=== PATIENT | female | born 1990 | race Caucasian/White ===

== ENCOUNTER 2016-11-26 13:42 | Emergency (ER) | payer OTHER ==
[~2016-11-26] VITALS: Ht 154.9 cm; Wt 50.0 kg
[2016-11-26 13:46] VITALS: BP 136/63; PULSE 63; RESP 15; TEMP 97.8; O2SAT 99
--- NOTE | 2016-11-26 14:27 | PD ---
HPI Chief Complaint: GI Complaint Time Seen by Provider: 13:58 Travel History International Travel<30 days: No Contact w/Intl Traveler<30days: No Traveled to known affect area: No History of Present Illness HPI This is a 26-year-old female who presents to the emergency department with some left upper quadrant abdominal discomfort, intermittent, mild, with no associated vaginal bleeding. She does say she's had a little bit of blood in her stool. She also says that every day she vomits and she's lost 15 pounds during this and she noticed a little bit of blood in her vomit earlier today which concerned her. She was told that she is about 8 weeks but she hasn't had an ultrasound yet. 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 COUNT INCLUDES THE [facility] Past Medical History Medical History: Denies Significant Hx ?: LMP: UNKNOWN Past Surgical History Surgical History: No Previous Surgery Social History Alcohol Use: No Tobacco Use: Yes Substance Use: No (smokes marijuana) Allergies-Medications (Allergen,Severity, Reaction): Coded Allergies: No Known Allergies (Unverified , 11/26/16) Reported Meds & Prescriptions Reported Meds & Active Scripts Active No Active Prescriptions or Reported Medications Review of Systems Except as stated in HPI: all other systems reviewed are Neg Physical Exam Narrative GENERAL:Well appearing, no acute distress SKIN: Focused skin assessment warm and dry. HEAD: Atraumatic. Normocephalic. EYES: Pupils equal and round. No injection or drainage. ENT: Dry mucous membranes. Smells ketotic. NECK: Trachea midline. CARDIOVASCULAR: Regular rate and rhythm. No murmur appreciated. RESPIRATORY: Clear to auscultation. Breath sounds equal bilaterally. GASTROINTESTINAL: Abdomen soft, non-tender, nondistended. MUSCULOSKELETAL: No obvious deformities. NEUROLOGICAL: Awake and alert. No obvious cranial nerve deficits. Moving all extremities. PSYCHIATRIC: Appropriate mood and affect; insight and judgment normal. Data Data Last Documented VS Vital Signs Date Time Temp Pulse Resp B/P Pulse Ox O2 Delivery O2 Flow Rate FiO2 11/26/16 13:46 97.8 63 15 136/63 99 Orders Ed Poc Ultrasound (11/26/16 ) Complete Blood Count With Diff (11/26/16 14:12) Basic Metabolic Panel (Bmp) (11/26/16 14:12) Sodium Chlor 0.9% 1000 Ml Inj (Ns 1000 M (11/26/16 14:30) Labs Laboratory Tests Test 11/26/16 14:15 White Blood Count 6.2 TH/MM3 Red Blood Count 3.58 MIL/MM3 Hemoglobin 10.6 GM/DL Hematocrit 30.6 % Mean Corpuscular Volume 85.7 FL Mean Corpuscular Hemoglobin 29.6 PG Mean Corpuscular Hemoglobin 34.5 % Concent Red Cell Distribution Width 12.5 % Platelet Count 182 TH/MM3 Mean Platelet Volume 6.9 FL Neutrophils (%) (Auto) 57.5 % Lymphocytes (%) (Auto) 33.8 % Monocytes (%) (Auto) 6.9 % Eosinophils (%) (Auto) 1.3 % Basophils (%) (Auto) 0.5 % Neutrophils # (Auto) 3.6 TH/MM3 Lymphocytes # (Auto) 2.1 TH/MM3 Monocytes # (Auto) 0.4 TH/MM3 Eosinophils # (Auto) 0.1 TH/MM3 Basophils # (Auto) 0.0 TH/MM3 CBC Comment DIFF FINAL Differential Comment Sodium Level 137 MEQ/L Potassium Level 3.7 MEQ/L Chloride Level 104 MEQ/L Carbon Dioxide Level 23.2 MEQ/L Anion Gap 10 MEQ/L Blood Urea Nitrogen 5 MG/DL Creatinine 0.37 MG/DL Estimat Glomerular Filtration 215 ML/MIN Rate Random Glucose 85 MG/DL Calcium Level 8.8 MG/DL MDM Medical Decision Making Medical Screen Exam Complete: Yes Emergency Medical Condition: Yes Interpretation(s) Afebrile, no tachycardia, normotensive No leukocytosis Electrolytes are reassuring Differential Diagnosis , ectopic , hyperemesis gravidarum, electrolyte abnormality Narrative Course This is a 26-year-old female who presents to the emergency department with nausea and vomiting in the setting of early . She appears dehydrated on exam. an IV was established. She was given a liter of IV hydration. Labs are obtained which are reassuring. Bedside ultrasound demonstrates an active fetus. I think patient can safely be discharged with B-6 and Unisom and can follow-up with an ed educational aide. Procedures Procedure Narrative [id number] ultrasound: Intrauterine , mobile and active, unable to determine heart rate due to activity consistent with a viable Diagnosis Primary Impression: Hyperemesis gravidarum Patient Instructions: General Instructions Additional Instructions: Follow up with [facility] at: Follow up with: [facility] [address] [facility]. [address] [place] [address] Office Hours Saturday - 9:00 am - 5:30 pm Saturday 8:00 am - 12:00 pm Teen Tuesdays 4:00 - 6:30 pm Med/Other Pt SpecificInfo: Prescription(s) given Scripts Pyridoxine HCl (Vitamin B6) (Vitamin B-6)25 Mg Tablet1 Tab PO TID PRN (NAUSEA) # 21 Prov:Libia Galaviz MD 11/26/16 Diphenhydramine HCl (Sleep) (Unisom Sleepmelts)25 Mg Tab0.5 Tab PO HS PRN ( NAUSEA) #10 Prov:Libia Galaviz MD 11/26/16 Disposition: 01 DISCHARGE HOME Condition: Stable Libia Galaviz MD Nov 26, 2016 14:27
[2016-11-26] MEDS ORDERED: SODIUM CHLOR 0.9% 1000 ML INJ 1,000 ML IV SCH (14:30)
[2016-11-26 14:31] LABS: AUTOMATED NEUTROPHIL # 3.6 TH/MM3 (1.8-7.7); BASOPHIL % 0.5 % (0.0-2.0); EOSINOPHIL # 0.1 TH/MM3 (0-0.4); EOSINOPHIL % 1.3 % (0.0-4.0); HEMATOCRIT 30.6 % (35.0-46.0); HEMO FLAGS DIFF FINAL; LYMPH % 33.8 % (9.0-44.0); LYMPHOCYTE # 2.1 TH/MM3 (1.0-4.8); MEAN CELL VOLUME 85.7 FL (80.0-100.0); MEAN CORPUSCULAR HEMOGLOBIN 29.6 PG (27.0-34.0); MEAN CORPUSCULAR HGB CONC 34.5 % (32.0-36.0); MONO % 6.9 % (0.0-8.0); NEUT % 57.5 % (16.0-70.0); PLATELET COUNT 182 TH/MM3 (150-450); RED BLOOD COUNT 3.58 MIL/MM3 (4.00-5.30); RED CELL DISTRIBUTION WIDTH 12.5 % (11.6-17.2); WHITE BLOOD COUNT 6.2 TH/MM3 (4.0-11.0)
[2016-11-26 14:43] LABS: BICARBONATE 23.2 MEQ/L (21.0-32.0); POTASSIUM 3.7 MEQ/L (3.5-5.1)
[2016-11-26] MEDS ORDERED: PYRI25TA PO (14:50)
[2016-11-26] MEDS ORDERED: [UNRECOGNIZED DRUG - CODE] PO (14:50)
== END 2016-11-26 15:05 | disposition home or self-care (01) ==
LOC: NEPD 13:42
DX: O21.0 Mild hyperemesis gravidarum (principal); O26.891 Other specified pregnancy related conditions, first trimester; R10.12 Left upper quadrant pain; K92.1 Melena; K92.0 Hematemesis; Z72.0 Tobacco use; Z3A.08 8 weeks gestation of pregnancy
CPT/HCPCS: 80048; 85025; 96360; 99284; J7030

== ENCOUNTER 2017-02-12 12:46 | Emergency (ER) | payer SELFPAY ==
[~2017-02-12 12:46] MED LIST: PYRI25TA PO; [UNRECOGNIZED DRUG - CODE] PO
--- NOTE | 2017-02-12 13:48 | PD ---
HPI Chief Complaint lower abd and lower back pain. 1day hx N/V Date Seen: Feb 12, 2017 Time Seen: 13:40 Travel History International Travel<30 Days: No Contact w/Intl Traveler<30Days: No History of Present Illness HPI 26 yo with limited care. 20 wks gestation, as per patient. Pt presented to OB triage for complaints of pressure-like lower abd pain that radiate to lower back BL. Pain started this am, rates 7/10. Pt also stated she has 1 day hx of N/V and no po intake. Denies vaginal bleeding, LOF or contractions. Pt endorses movement. Denies WILLETT, dysuria. Of note: pt also reported weight loss during from about 145lbs [id number], approximately 30lbs wt loss. Para: 1 : 4 Miscarriage: 2 History Past Medical History Medical History: Denies Significant Hx Obstetric History Obstetric History -1 , pt stated she was told she had an old placenta with this -2 miscarriages Past Surgical History Surgical History: No Previous Surgery Family History Narrative Family History Father- hx of 2 heart attacks Social History Alcohol Use: No Tobacco Use: Yes (1 cig/day during , prior to 1 PPD) Substance Abuse: Yes (marijuana less than 1 gram/day ) Allergies-Medications (Allergen,Severity, Reaction): Coded Allergies: No Known Allergies (Unverified , 11/26/16) Home Meds Active Scripts Pyridoxine HCl (Vitamin B6) (Vitamin B-6) 25 Mg Tablet, 1 TAB PO TID Y for NAUSEA, #21 Prov:Libia Galaviz MD 11/26/16 Diphenhydramine HCl (Sleep) (Unisom Sleepmelts) 25 Mg Tab, 0.5 TAB PO HS Y for NAUSEA, #10 Prov:Libia Galaviz MD 11/26/16 Review of Systems Except as stated in HPI: all other systems reviewed are Neg Physical Exam Narrative GENERAL: Well-nourished, well-developed patient. SKIN: Warm and dry. HEAD: Normocephalic and atraumatic. EYES: No scleral icterus. No injection or drainage. ENT: No nasal drainage noted. Mucous membranes pink. Airway patent. NECK: Supple, trachea midline. No JVD. CARDIOVASCULAR: Normal s1 and s2. Regular rate and rhythm without murmurs, gallops, or rubs. RESPIRATORY: Breath sounds equal bilaterally. No accessory muscle use. ABDOMEN/GI: Abdomen soft, non-tender, bowel sounds present, no rebound, no guarding - heart tone present, appropriate for gestational age EXTREMITIES: No cyanosis or edema. BACK: Nontender without obvious deformity. No CVA tenderness. NEUROLOGICAL: Awake and alert. Motor and sensory grossly within normal limits. Five out of 5 muscle strength in all muscle groups. Normal speech. Data Data Vital Signs Reviewed: Yes Orders Orders Rubella Immune Status (02/12/17 13:19) Hepatitis Profile (02/12/17 13:19) Rapid Plasma Regin (Rpr) W Ttr (02/12/17 13:19) Type And Screen (02/12/17 13:19) Complete Blood Count With Diff (02/12/17 13:19) Special Serology (02/12/17 13:19) Ob/Psych Drug Screen, Urine (02/12/17 13:19) MDM Plan 26 yo at 22/1 wks gestation according to Ob diagnostic u/s done today. Pt presented to Ob triage with complaint of lower abd and back pain and 1 day hx of N/V. 1. IUP at 21/2 -continue OB routine care -encourage po hydration as tolerated -poor care. labs ordered -Normal dating Obstetrical u/s dating fetus at 22/1 - heart tones present, appropriate for gestational age -Pt advised to contact [facility] for follow up within 2-3 days. -case management consulted to help pt obtain have health insurance. Spoke to Mulu from case management, she will have change healthcare speak to pt to help pt with medicaid application/ possible discharge meds. 2. N/V with recent marijuana use -1 LR IV hydration -will order zofran 4mg Q6h IV once -urine positive for cannabinoids -VS are WNL -pt to be discharge home, pending normal po challenge sdw Dr. Andino Diagnosis Diagnosis: Primary Impression: 21 weeks gestation of Additional Impression: Nausea and vomiting during Disposition: DISCHARGE HOME Condition: Good Scripts Ondansetron Odt (Zofran Odt) 4 Mg Tab 4 MG SL Q6HR Y for Nausea/Vomiting, #30 TAB 2 Refills Prov: Diane Pena MD R1 02/12/17 Diane Pena MD R1 Feb 12, 2017 13:48
[2017-02-12] MEDS ORDERED: LACTATED RINGER'S 1000 ML INJ 1,000 ML IV ONE ×2 (14:15→14:30)
[2017-02-12 14:37] LABS: BASOPHIL % 0.2 % (0.0-2.0); EOSINOPHIL % 0.5 % (0.0-4.0); HEMATOCRIT 28.4 % (35.0-46.0); HEMO FLAGS DIFF FINAL; LYMPH % 27.4 % (9.0-44.0); LYMPHOCYTE # 2.1 TH/MM3 (1.0-4.8); MEAN CELL VOLUME 88.6 FL (80.0-100.0); MEAN CORPUSCULAR HEMOGLOBIN 30.1 PG (27.0-34.0); MONO % 5.6 % (0.0-8.0); NEUT % 66.3 % (16.0-70.0); PLATELET COUNT 184 TH/MM3 (150-450); RED CELL DISTRIBUTION WIDTH 12.6 % (11.6-17.2); WHITE BLOOD COUNT 7.6 TH/MM3 (4.0-11.0)
[2017-02-12 15:09] LABS: ANION GAP 10 MEQ/L (5-15); AST (GOT) 5 U/L (15-37); BICARBONATE 25.3 MEQ/L (21.0-32.0); BLOOD UREA NITROGEN 5 MG/DL (7-18); CHLORIDE 101 MEQ/L (98-107); GLOMERULAR FILTRATION RATE 237 ML/MIN (>89); POTASSIUM 3.3 MEQ/L (3.5-5.1); SODIUM (NA) 136 MEQ/L (136-145)
[2017-02-12 15:23] LABS: ALKALINE PHOSPHATASE 49 U/L (45-117); ALT (GPT) 7 U/L (10-53); TOTAL BILIRUBIN ADULT 0.6 MG/DL (0.2-1.0)
[2017-02-12 15:24] LABS: RUBELLA IGG ANTIBODY 28.8 IU/mL (10.0-500.0); RUBELLA STATUS IMMUNE (IMMUNE)
[2017-02-12] MEDS ORDERED: ONDANSETRON HCL 4 MG/2 ML VIAL IV PUSH PRN (15:45)
[2017-02-12] MEDS ORDERED: ZOFR4TAB3 SL ×2 (17:02→17:04)
[2017-02-15 12:01] LABS: BATH SALTS (MDPV) UR NEG (NEG); ECSTASY (MDMA) UR NEG (NEG); GABAPENTIN UR NEG (NEG); HEROIN (6-ACETYLMORPHINE) UR NEG (NEG); HYDROMORPHONE U POS (NEG); K2 SPICE UR NEG (NEG); OBMETHADONE UR NEG (NEG); PHENCYCLIDINE URINE NEG (NEG)
== END 2017-02-12 17:15 | disposition home or self-care (01) ==
LOC: HOBED 12:46
DX: O21.9 Vomiting of pregnancy, unspecified (principal); M54.9 Dorsalgia, unspecified; R10.30 Lower abdominal pain, unspecified; O99.322 Drug use complicating pregnancy, second trimester; F12.90 Cannabis use, unspecified, uncomplicated; O99.332 Smoking (tobacco) complicating pregnancy, second trimester; Z3A.21 21 weeks gestation of pregnancy; Z79.899 Other long term (current) drug therapy
CPT/HCPCS: 36415; 76805; 80053; 80074; 80307; 85025; 86592; 86762; 86850; 86900; 86901; 87389; 99285; G0481; J7120